=== PATIENT | female | born 1955 | race Caucasian/White ===

== ENCOUNTER 2025-04-08 20:25 | Emergency (ER) | payer MEDICARE, OTHER, SELFPAY ==
[2025-04-08 21:07] VITALS: BP 136/77; PULSE 86; RESP 17; TEMP 36.7; O2SAT 99; BMI 22.4
--- NOTE | 2025-04-08 21:27 | ED_ITS ---
HPI - Wound/Laceration General: Chief Complaint: Wound/Laceration Stated Complaint: finger lac Time Seen by Provider: 04/08/25 21:26 Source: patient Mode of arrival: ambulatory Limitations: no limitations History of Present Illness: Patient is a 69-year-old female presents to ED today for evaluation of a laceration to her left index finger that she sustained just prior to arrival after she was using a mandolin. She states she peeled the distal palmar pad of her left index finger off. Tetanus is up-to-date. She has no other injuries or complaints at this time. Onset (ago): hour(s) Extremity Location: Left: hand (index finger) Place: home Patient tetanus UTD: Yes Context: accidental Associated symptoms: Reports no associated symptoms Treatments prior to arrival: bandage Related Data Allergies Allergy/AdvReac Type Severity Reaction Status Date / Time No Known Allergies Allergy Verified 04/08/25 21:20 Review of Systems Musc: Reports: extremity pain; Denies: extremity swelling, joint pain, joint swelling or joint redness Skin/Breast: Reports: other (skin avulsion distal L index finger) Neuro: Denies: numbness in extremities or sensory changes Physical Exam Const: COMMON NORMALS: no acute distress, average body habitus, no limitations, healthy appearing, alert and well nourished GENERAL APPEARANCE: cooperative Extremity: GENERAL: Yes normal exam except as noted LEFT UPPER EXTREMITY: Yes hand & digits (superficial skin avulsion of distal palmar pad L index finger) Left hand and digits: Yes ROM (normal) and Yes neurovascular exam (normal) Neuro: SENSORIUM/ORIENTATION: Yes alert Procedures Laceration Laceration 1: Site: hand (L distal index finger) Side (If applicable): left Size (cm): 1.5 Description: flap Local Anesthetic: lidocaine 2% (digital block) Amount of anesthesia used (mL): 2.0 Pre-repair: wound explored and irrigated extensively Skin layer closed with: nylon Size (cm): 5-0 Number of sutures: 5 Technique: simple, interrupted Course Vital Signs: Vital signs: Vital Signs Temperature 98.0 F 04/08/25 21:07 Pulse Rate 86 04/08/25 21:07 Respiratory Rate 17 04/08/25 21:07 Blood Pressure 136/77 04/08/25 21:07 Pulse Oximetry 99 04/08/25 21:07 Oxygen Delivery Me thod Room Air 04/08/25 21:07 MDM - Wound/Laceration Medical Decision Making Wound was copiously irrigated and repaired as documented. Discussed how tissue may end up being nonviable. Tetanus was up-to-date. Wound care/infection precautions discussed. Differential Diagnosis Likely laceration and avulsion of skin Medical Records I reviewed the patient's medical records. No radiology studies performed this visit Discharge Plan Discharge Patient Disposition: Home Clinical Impression: Laceration of left index finger Qualifiers: Encounter type: initial encounter Damage to nail status: without damage Foreign body presence: without foreign body Qualified Code(s): S61.211A - Laceration without foreign body of left index finger without damage to nail, initial encounter Condition: Stable Discharge Orders: Discharge ED (Routine); Ordered 04/08/25 Ordered By: Kassidy Souza Patient Instructions: Finger Laceration (ED), Patient Portal & Jim Instructions Activity Restrictions/Additional Instructions: Keep wound/laceration clean with warm soap and water twice daily. Monitor for signs of infection such as redness, swelling, increased pain, or drainage. Please seek medical re-evaluation if these occur. If you received sutures today these will need to be removed (unless you were told by the provider that they are absorbable). The provider should have discussed with you the length of time until removal-7 days. Print Language: Irish Coding Level of Care Code ED [employer] for Kristy Burks
[2025-04-08 22:18] VITALS: BP 107/65; PULSE 83; O2SAT 99
== END 2025-04-08 22:20 | disposition home or self-care (01) ==
PROVIDERS: Emergency Provider Physician Assistant
DX: S61.211A Laceration without foreign body of left index finger without damage to nail, initial encounter (principal); X58.XXXA Exposure to other specified factors, initial encounter
CPT/HCPCS: 12001; 99283